=== PATIENT | female | born 1985 | race Native Hawaiian/Other Pacific Islander ===

== ENCOUNTER 2017-04-04 22:15 | Emergency (ER) | payer OTHER ==
[2017-04-04 22:25] VITALS: RESP 16; TEMP 98.1; O2SAT 100
[2017-04-04 22:26] VITALS: BP 118/77
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
[2017-04-05 00:13] VITALS: PULSE 81
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
== END 2017-04-04 22:50 | disposition home or self-care (01) ==
LOC: H.ER 22:15 → EDSEX 22:15 → H.ER 22:50
DX: M54.9 Dorsalgia, unspecified (principal); V49.40XA Driver injured in collision with unspecified motor vehicles in traffic accident, initial encounter; Y93.9 Activity, unspecified